=== PATIENT | female | born 1960 | race Caucasian/White ===

== ENCOUNTER 2020-01-12 15:32 | Outpatient (CLI) | payer BC, SELFPAY ==
--- NOTE | ~2020-01-12 | XR_ITS ---
XR wrist LT min 3V DATE: 01/12/2020 16:11 INDICATION: Fell 2 days ago. Left wrist injury, generalized pain TECHNIQUE: 4 views COMPARISON: None FINDINGS: No fracture or dislocation, periosteal reaction or bone destruction. No joint space narrow ing or erosions. IMPRESSION: No significant abnormality Reviewed, dictated and finalized at location B. MBLYMAN OR WOMAN IMPRESSION: No significant abnormality
== END 2020-01-12 15:33 | disposition home or self-care (01) ==
LOC: ANHIMG 15:41
PROVIDERS: PCP Family Medicine; Visit Provider Family Medicine
DX: M25.532 Pain in left wrist (principal)
CPT/HCPCS: 73110

== ENCOUNTER 2020-05-22 17:03 | Emergency (ER) | payer BC, SELFPAY ==
[2020-05-22 17:22] VITALS: BP 140/72; PULSE 72; RESP 15; TEMP 37.7; O2SAT 98
[2020-05-22 17:59] LABS: Basophils Percent Auto 0.4 % (0.2-1.2); Eosinophils Absolute Auto 0.1 K/mm3 (0-0.3); Eosinophils Percent Auto 0.6 % (0-4.4); Hematocrit 39.5 % (37.0-47.0); Hemoglobin 13.2 g/dL (12.0-15.0); Immature Granulocyte Absolute 0.03 K/mm3 (0.00-0.031); Immature Granulocyte Percent A 0.3 % (0-0.5); Lymphocytes Absolute Auto 1.13 K/mm3 (0.9-3.2); Lymphocytes Percent Auto 11.4 % (18.3-44.2); Mean Corpuscular HGB Conc 33.4 g/dl (32-36); Mean Corpuscular Hemoglobin 27.9 pg (26-34); Mean Corpuscular Volume 83.5 fl (80-100); Mean Platelet Volume 10.3 fl (7.4-10.4); Monocytes Absolute Auto 1.1 K/mm3 (0.1-0.6); Monocytes Percent Auto 11.3 % (2.6-8.5); Neutrophils Absolute Auto 7.5 K/mm3 (1.3-6.7); Platelet Count Result 230 k/mm3 (150-375); Red Blood Count 4.73 M/mm3 (4.2-5.4); Red Cell Distribution Width 13.1 % (11.5-14.5); White Blood Count 9.9 K/mm3 (4.5-10.0)
[2020-05-22 18:03] LABS: Add Urine Microscopic? YES; Appearance Urine Clear (Clear); Bacteria Urine Trace /hpf; Bilirubin Urine Negative (Negative); Blood Urine 2+ (Negative); Color Urine Yellow (Yellow); Glucose Urine UA Negative (Negative); Ketones Urine Negative (Negative); Leukocyte Esterase Ur Negative LEU/UL (Negative); Mucus Urine Rare /lpf; Nitrate Urine Negative (Negative); Protein Urine 1+ mg/dL (Negative); RBC Urine 0-2 /hpf (0-2); Specific Grav Ur 1.018 (1.001-1.035); Squamous Epithelial Cell Urine Rare /hpf (Few); Urobilinogen Urine Negative mg/dL (<2.0); WBC Urine 0-3 /hpf
[2020-05-22 18:16] LABS: Alanine Aminotransferase 17 U/L (4-35); Albumin Level 4.4 g/dL (3.5-5.1); Alkaline Phosphatase 93 U/L (38-126); Aspartate Amino Transferase 26 U/L (14-36); Bilirubin,Total 0.9 mg/dL (0.2-1.3); Blood Urea Nitrogen 16 mg/dL (7-17); Calcium 8.4 mg/dL (8.4-10.2); Carbon Dioxide 27 mmol/L (22-30); Chloride 93 mmol/L (98-107); Estimated CRCL calculation 61 ml/min; Estimated Glomerular Filt Rate > 60; Glucose 115 mg/dL (65-105); Potassium 4.1 mmol/L (3.4-5.0); Sodium 129 mmol/L (137-145)
--- NOTE | 2020-05-22 18:17 | ED.GENADULT ---
HPI - General Adult General Chief complaint: Unspecified Stated complaint: dehydration Time Seen by Provider: 05/22/20 17:54 History of Present Illness HPI narrative: Not feeling well for the past week. Started with nausea and epigastric pain. Then a few days later she develoiped fevers. She does report cough. No SOB. SHe was tested for COVID-19 yesterday which came back negative. Now she mostly feels week and dizzy. Related Data Allergies Allergy/AdvReac Type Severity Reaction Status Date / Time bacitracin Allergy Mild Verified 07/14/10 17:34 gramicidin D Allergy Mild Verified 07/14/10 17:34 polymyxin B Allergy Mild Verified 07/14/10 17:34 BACITRACIN ZINC Allergy Mild Uncoded 07/14/10 17:34 NEOMYCIN SULFATE Allergy Mild Uncoded 07/14/10 17:34 POLYMYXIN B SULFATE Allergy Mild Uncoded 07/14/10 17:34 Review of Systems Review of Systems: All systems reviewed & are unremarkable except as noted in HPI and below Constitutional: Constitutional: Reports fever(s) ENT: Denies sore throat Cardiovascular: Cardiovascular: Denies chest pain Respiratory: Respiratory: Reports cough and Denies dyspnea Gastrointestinal: Gastrointestinal: Reports abdominal pain, Denies constipation, Denies diarrhea, Reports nausea and Reports vomiting Genitourinary: Genitourinary: Denies hematuria and Denies dysuria [facility] Social History Social History Gender identity (if verbalized by the patient): Female Exam Const: General: healthy appearing, no acute distress and alert Orientation/consciousness: patient oriented x3 HENMT: Head: normal to inspection Mouth: Yes dry mucous membranes Neck: Neck: normal visual inspection and no lymphadenopathy Chest: Chest palpation & inspection: no tenderness Resp: Effort & Inspection: normal respiratory effort Auscultation: clear to auscultation bilaterally, no rales, no rhonchi and no wheezes Cardio: Jugular venous distension: no JVD Rate: regular rate Rhythm: regular rhythm Heart sounds: no murmurs GI: Inspection: non-distended GI Palp: Yes Soft to palpation and No Tenderness to palpation present (GI) Skin: General skin exam: normal color Neuro: General: patient oriented x3, moves all extremities and CN's II-XI intact bilaterally Speech: normal speech Extrem: General: no edema Psych: Appearance: well kempt Affect: normal affect Course Vital Signs Vital signs: Vital Signs Temperature 37.7 C H 05/22/20 17:22 Pulse Rate 72 05/22/20 17:22 Respiratory Rate 15 05/22/20 17:22 Blood Pressure 140/72 05/22/20 17:22 Pulse Oximetry 98 05/22/20 17:22 Temperature 37.7 C H 05/22/20 17:22 Pulse Rate 72 05/22/20 17:22 Respiratory Rate 15 05/22/20 17:22 Blood Pressure 140/72 05/22/20 17:22 Pulse Oximetry 98 05/22/20 17:22 Medical Decision Making MDM Narrative Medical decision making narrative: Labs indicate dehydration. She is feeling beter after fluids. tolerating PO. Medical Records Medical records reviewed: Yes I reviewed the patient's medical records. Vital Signs Vital Signs: Vital Signs Temperature 37.7 C H 05/22/20 17:22 Pulse Rate 72 05/22/20 17:22 Respiratory Rate 15 05/22/20 17:22 Blood Pressure 140/72 05/22/20 17:22 Pulse Oximetry 98 05/22/20 17:22 Temperature 37.7 C H 05/22/20 17:22 Pulse Rate 72 05/22/20 17:22 Respiratory Rate 15 05/22/20 17:22 Blood Pressure 140/72 05/22/20 17:22 Pulse Oximetry 98 05/22/20 17:22 Lab Data Lab results reviewed: Yes I reviewed the patient's lab results. Result diagrams: 05/22/20 17:52 05/22/20 17:52 Labs: Lab Results 05/22/20 05/22/20 05/22/20 Range/Units 17:52 17:52 17:52 WBC 9.9 (4.5-10.0) K/mm3 RBC 4.73 (4.2-5.4) M/mm3 Hgb 13.2 (12.0-15.0) g/dL Hct 39.5 (37.0-47.0) % MCV 83.5 (80-100) fl MCH 27.9 (26-34) pg MCHC 33.4 (32-36) g/dl RDW 1
[2020-05-22] MEDS: SODIUM CHLORIDE 0.9% IV 1,000 ML 999 ML IV CONT ×2 (18:21→19:37)
[2020-05-22] MEDS: ONDANSETRON INJ 4 MG/2 ML VIAL IV PUSH (18:22)
[2020-05-22] MEDS: METOCLOPRAMIDE HCL INJ 10 MG/2 ML VIAL IV PUSH (19:37)
[2020-05-22] MEDS: KETOROLAC 30 MG/ML VIAL (*BKC) IV PUSH (19:37)
== END 2020-05-22 20:40 | disposition home or self-care (01) ==
PROVIDERS: Emergency Provider Emergency Medicine; PCP Family Medicine
DX: R11.2 Nausea with vomiting, unspecified (principal)
CPT/HCPCS: 36415; 80053; 81001; 85025; 96361; 96374; 96375; 99284; J1885; J2405; J2765; J7030

== ENCOUNTER 2020-12-15 15:55 | Outpatient (CLI) | payer BC, SELFPAY ==
--- NOTE | ~2020-12-15 | MM_ITS ---
EXAMINATION: MM screening nida BI w pat HISTORY: Screening mammogram TECHNIQUE: Craniocaudal and mediolateral oblique 3-D tomosynthesis images were obtained and synthetic 2-D images were generated. CAD analysis was submitted and interpreted. COMPARISON: 03/22/2018, 12/04/2016, 03/26/2013 bilateral digital screening mammogram examinations BREAST PARENCHYMAL COMPOSITION: There are scattered areas of fibroglandular density. FINDINGS: There is no evidence of suspicious mass, calcification, or architectural distortion to sugg est malignancy in either breast. There has been no suspicious interval change. IMPRESSION: 1. No mammographic evidence of malignancy. 2. Recommend routine screening mammography in one year. BI-RADS Category 1: Negative Reviewed, dictated and finalized at location A. IGURATION MANAGEMENT ADMINISTRATOR
== END 2020-12-15 15:56 | disposition home or self-care (01) ==
LOC: ANHIMG 15:57
PROVIDERS: Family Provider Family Medicine; PCP Family Medicine; Visit Provider Physician Assistant
DX: Z12.31 Encounter for screening mammogram for malignant neoplasm of breast (principal)
CPT/HCPCS: 77063; 77067

== ENCOUNTER 2021-03-29 16:43 | Emergency (ER) | payer BC, SELFPAY ==
[2021-03-29] VITALS (17 sets, daily range): BP systolic 126–145; BP diastolic 61–78; PULSE 80–107; RESP 9–22; TEMP 36.7; O2SAT 97–99
--- NOTE | ~2021-03-29 | CT_ITS ---
EXAMINATION: CTA chest PE protocol DATE: 03/29/2021 19:11 INDICATION: Lung mass. Shoulder blade pain. TECHNIQUE: Computed tomography angiography (CTA) of the chest was performed with 100 mL Omnipaque-350 intravenous contrast timed to evaluate the pulmonary arteries. Coronal maximum intensity projection 3D-reconstructions were created by the technologist. Automated exposure control and iterative reconst ruction technique were employed. The dose-length product was 320.37 mGy-cm. COMPARISON: Chest 2 views 03/29/2021 FINDINGS: A calcified right lung nodule and calcified right hilar lymph nodes are consistent with old granulomatous disease. There are airspace opacities and groundglass opacities with air bronchograms in anterior segment left upper lobe. There are peripheral airspace and groundglass opacities in super ior segment left lower lobe. These findings are consistent with pneumonia. There is mild atelectasis bilaterally. There are several scattered nodules in the lungs measuring up to 5 mm, likely benign. No pleural effusion. The heart size is normal. No pericardial effusion. There is no pulmonary embolus. There is severe mid thoracic spondylosis. IMPRESSION: 1. Pneumonia involving anterior segment left upper lobe and superior segment left lower lobe correlat ing with the chest radiograph abnormality. 2. No pulmonary embolus. Reviewed, dictated and finalized at location A. IMPRESSION: 1. Pneumonia involving anterior segment left upper lobe and superior segment le ft lower lobe correlating with the chest radiograph abnormality. 2. No pulmonary embolus.
--- NOTE | ~2021-03-29 | XR_ITS ---
EXAMINATION: XR chest 2V DATE: 03/29/2021 17:41 INDICATION: Chest pain. TECHNIQUE: Frontal and lateral views of the chest were obtained. COMPARISON: None. FINDINGS: There is a mass in left midlung zone. No pleural effusion or pneumothorax. The heart size i s normal. IMPRESSION: 1. Mass in left midlung zone suspicious for primary bronchogenic carcinoma. Chest CT is recommended. I called this result to Dr. Doan. Reviewed, dictated and finalized at location A. IMPRESSION: 1. Mass in left midlung zone suspicious for primary bronchogenic carcinoma. Landy st CT is recommended. I called this result to Dr. Doan.
--- NOTE | 2021-03-29 16:53 | ECG_ITS ---
Measurements Intervals [place] Rate: 93 P: 63 ME: 145 QRS: 25 QRSD: 86 T: 19 QT: 339 QTc: 424 Interpretive Statements SINUS RHYTHM BORDERLINE T WAVE ABNORMALITY- ANTERIOR LEADS BASELINE ARTIFACT- I, II, III, AVR, AVF, V2-V6 BORDERLINE ECG Electronically Signed On 03-29-2021 18:43:45 CDT by Amos Alvarez D.O.
--- NOTE | 2021-03-29 17:19 | ED.ARRPALP ---
HPI - Arrhythmia/Palpitations General Chief Complaint: Arrhythmia/Palpitations Stated Complaint: lightheaded, back pain, sob Time Seen by Provider: 03/29/21 17:08 Source: patient Mode of arrival: ambulatory Limitations: no limitations History of Present Illness HPI narrative: This is a 60 year old female who presents for evaluation of lightheadedness and back pain. She states she has been intermittently lightheaded for 1 week. She also reports some nights she wakes up with her heart racing. On Sunday, she noticed pain to her left shoulder blade and it has been constant. Yesterday her pain moved across her entire upper back. Her pain is better after taking aspirin. She does not think her pain is exertion. She thinks she may have intermittent chest pain today but it is not exertional either. She denies nausea, vomiting, fever, chills. she does reports mild cough and fatigue. Denies cardiac disease or lung disease. Related Data Home Medications Medication Instructions Recorded Confirmed ascorbic acid (vitamin C) [Vitamin 1 g PO DAILY 03/29/21 03/29/21 C] cetirizine [Zyrtec] 10 mg PO DAILY 03/29/21 03/29/21 Allergies Allergy/AdvReac Type Severity Reaction Status Date / Time bacitracin Allergy Mild Unknown Verified 03/29/21 17:04 gramicidin D Allergy Mild Unknown Verified 03/29/21 17:04 polymyxin B Allergy Mild Unknown Verified 03/29/21 17:04 BACITRACIN ZINC Allergy Mild Unknown Uncoded 03/29/21 17:04 NEOMYCIN SULFATE Allergy Mild Unknown Uncoded 03/29/21 17:04 POLYMYXIN B SULFATE Allergy Mild Unknown Uncoded 03/29/21 17:04 Review of Systems Review of Systems: All systems reviewed & are unremarkable except as noted in HPI and below PMFSH Past Medical History Medical History (Updated 03/29/21 @ 20:57 by Eden Ocampo MD) Lichen sclerosus of vulva Social History Social History (Updated 03/29/21 @ 17:27 by Eden Ocampo MD) Smoking status: Former smoker Gender identity (if verbalized by the patient): Female Exam Const: General: no acute distress and alert Orientation/consciousness: patient oriented x3 Eyes: EOM: EOMs intact bilaterally Chest: Chest palpation & inspection: normal inspection of the chest Resp: Effort & Inspection: normal respiratory effort and no retractions Auscultation: clear to auscultation bilaterally Cardio: Rate: regular rate Rhythm: regular rhythm Heart sounds: no murmurs GI: GI Palp: Yes Soft to palpation, No Tenderness to palpation present (GI) and No Guarding due to palpation present (GI) Auscultation: normal bowel sounds Back/Spine/Pelvis: Back: no CVA tenderness Skin: General skin exam: normal color Neuro: General: patient oriented x3, moves all extremities and CN's II-XI intact bilaterally Psych: Mental Status: mental status grossly normal Affect: normal affect Course Reevaluation(s) Reevaluation #1: I Discussed with patient that she has been found to have pneumonia. She was given antibiotics here. She is not hypoxic and vitals are stable. She denies any questions or concerns. Date: 03/29/21 Time: 20:54 Vital Signs Vital signs: Vital Signs Temperature 98.1 F 03/29/21 16:55 Pulse Rate 92 03/29/21 16:55 Respiratory Rate 18 03/29/21 16:55 Blood Pressure 143/76 H 03/29/21 16:55 Pulse Oximetry 99 03/29/21 16:55 Temperature 98.1 F 03/29/21 16:55 Pulse Rate 99 03/29/21 18:47 Respiratory Rate 18 03/29/21 18:47 Blood Pressure 135/78 03/29/21 18:47 Pulse Oximetry 99 03/29/21 18:47 MDM - Arrhythmia/Palpitations Lab Data Attestation: I reviewed the patient's lab results. Result diagrams: 03/29/21 17:35 03/29/21 17:35 Labs: Lab Results 03/29/21 03/29/21 03/29/21 Range/Units 17:35 17:35 17:35 WBC 9.4 (4.5-10.0) K/mm3 RBC 4.64 (4.2-5.4) M/mm3 Hgb 12.8 (12.0-15.0) g/dL Hct 39.4 (37.0-47.0) % MCV 84.9 (80-100) fl MCH 27.6 (26-34)
[2021-03-29] MEDS: ASPIRIN 81 MG CHEWABLE TABLET 162 MG PO (17:28)
[2021-03-29 17:57] LABS: Basophils Absolute Auto 0.1 K/mm3 (0.0-0.1); Basophils Percent Auto 0.6 % (0.2-1.2); Eosinophils Absolute Auto 0.3 K/mm3 (0-0.3); Eosinophils Percent Auto 3.3 % (0-4.4); Hematocrit 39.4 % (37.0-47.0); Hemoglobin 12.8 g/dL (12.0-15.0); Immature Granulocyte Absolute 0.03 K/mm3 (0.00-0.031); Immature Granulocyte Percent A 0.3 % (0-0.5); Lymphocytes Absolute Auto 1.39 K/mm3 (0.9-3.2); Lymphocytes Percent Auto 14.7 % (18.3-44.2); Mean Corpuscular HGB Conc 32.5 g/dl (32-36); Mean Corpuscular Hemoglobin 27.6 pg (26-34); Mean Corpuscular Volume 84.9 fl (80-100); Mean Platelet Volume 10.8 fl (7.4-10.4); Monocytes Absolute Auto 0.8 K/mm3 (0.1-0.6); Monocytes Percent Auto 8.8 % (2.6-8.5); Neutrophils Absolute Auto 6.8 K/mm3 (1.3-6.7); Neutrophils Percent Auto 72.3 % (45.5-73.1); Platelet Count Result 245 k/mm3 (150-375); Red Blood Count 4.64 M/mm3 (4.2-5.4); Red Cell Distribution Width 13.1 % (11.5-14.5); White Blood Count 9.4 K/mm3 (4.5-10.0)
[2021-03-29 18:08] LABS: Anion Gap 5 mmol/L (8-16); Blood Urea Nitrogen 10 mg/dL (7-17); Calcium 9.3 mg/dL (8.4-10.2); Carbon Dioxide 30 mmol/L (22-30); Chloride 100 mmol/L (98-107); Estimated CRCL calculation 67 ml/min; Estimated Glomerular Filt Rate > 60; Glucose 108 mg/dL (65-105); Potassium 3.9 mmol/L (3.4-5.0); Sodium 135 mmol/L (137-145)
[2021-03-29 18:11] LABS: Magnesium 2.1 mg/dL (1.6-2.3)
[2021-03-29 18:20] LABS: Troponin I < 0.012 ng/mL (0.000-0.034)
[2021-03-29 18:32] LABS: D Dimer 0.36 ug/mL (<0.48)
[2021-03-29] MEDS: AZITHROMYCIN 250 MG TABLET 500 MG PO (19:57)
[2021-03-29] MEDS: LACTATED RINGERS 1,000 ML 999 ML IV CONT (19:57)
[2021-03-29 20:59] LABS: Troponin I < 0.012 ng/mL (0.000-0.034)
== END 2021-03-29 21:10 | disposition home or self-care (01) ==
PROVIDERS: Emergency Medicine; Emergency Provider General Practice; PCP Family Medicine
DX: J18.9 Pneumonia, unspecified organism (principal)
CPT/HCPCS: 36415; 71046; 71275; 80048; 83735; 84484; 85025; 85380; 93005; 96361; 96365; 99284; A9270; J0696; J7120; Q9967

== ENCOUNTER 2021-04-18 16:41 | Outpatient (CLI) | payer BC, SELFPAY ==
--- NOTE | ~2021-04-18 | XR_ITS ---
EXAMINATION: XR chest 2V 04/18/2021 16:58 INDICATION: Follow-up pneumonia. PROCEDURE: PA and lateral views of the chest COMPARISON: 03/29/2021 FINDINGS: The lungs are clear. The cardiomediastinal silhouette is within normal limits. There are no pleural effusions. There is no pneumothorax suspected. There are calcified granulomas of the rig ht lower lung. IMPRESSION: 1: NO ACUTE CARDIOPULMONARY DISEASE. Reviewed, dictated and finalized at location A.
== END 2021-04-18 16:42 | disposition home or self-care (01) ==
LOC: ANHIMG 16:46
PROVIDERS: PCP Family Medicine; Visit Provider Family Medicine
DX: J18.9 Pneumonia, unspecified organism (principal)
CPT/HCPCS: 71046

== ENCOUNTER → 2021-11-09 09:57 | Outpatient (CLI) | payer BC, SELFPAY ==
[2021-11-09 18:29] LABS: SARS-CoV-2 RNA PCR Negative
== END ==
PROVIDERS: PCP Family Medicine; Visit Provider Physician Assistant
DX: Z20.822 Contact with and (suspected) exposure to COVID-19 (principal)
CPT/HCPCS: C9803; U0003; U0005

== ENCOUNTER 2022-01-27 10:13 | Emergency (ER) | payer BC, SELFPAY ==
[2022-01-27] VITALS (7 sets, daily range): BP systolic 120–170; BP diastolic 53–89; PULSE 56–96; RESP 14–18; TEMP 36.6–36.8; O2SAT 14–100
--- NOTE | ~2022-01-27 | XR_ITS ---
EXAMINATION: XR foot LT min 3V EXAM DATE: 01/27/2022 11:47 INDICATION: Pain Across Midshaft Metatarsals. TECHNIQUE: Left foot dorsoplantar, lateral and oblique projections obtained and reviewed. There is n o prior study for comparison. FINDINGS: Left metatarsal bones unremarkable. Tiny posterior and inferior calcaneal spurs. There a re no acute fractures or dislocations identified. There is no subcutaneous gas. The soft tissue is unremarkable. There are no radiopaque foreign bodies. IMPRESSION: Left foot exam without acute osseous findings. Reviewed, dictated and finalized at location B. ROL SYSTEMS ENG
--- NOTE | ~2022-01-27 | CT_ITS ---
EXAMINATION: CT brain wo con DATE: 01/27/2022 11:44 INDICATION: Headache. TECHNIQUE: Computed tomography (CT) of the head was performed without intravenous contrast. The mA wa s adjusted according to patient size. Iterative reconstruction technique was employed. The dose-lengt h product was 605.33 mGy-cm. COMPARISON: None FINDINGS: There is no intracranial hemorrhage, acute infarction, or abnormal intracranial mass lesion . The ventricles are normal in size. The orbits are normal. There is mucosal thickening and dependent fluid in the paranasal sinuses. The mastoid air cells are normal. IMPRESSION: 1. Normal brain. Reviewed, dictated and finalized at location A. MOTIVE REPAIRER DIESEL IMPRESSION: 1. Normal brain.
--- NOTE | ~2022-01-27 | XR_ITS ---
EXAMINATION: XR chest 2V EXAM DATE: 01/27/2022 11:47 INDICATION: High Blood Pressure, Dizziness . TECHNIQUE: Frontal and lateral projections of the chest obtained and reviewed. Comparison is made to prior examination from 04/18/2021. FINDINGS: Several right lung calcifications. The lungs are otherwise clear. There are no pleural eff usions. The cardiomediastinal silhouette is within normal limits. There is no pneumothorax suspecte d. The bones and soft tissues are unremarkable. IMPRESSION: No acute cardiopulmonary findings. Reviewed, dictated and finalized at location B. ICE TEAM LEADER
--- NOTE | 2022-01-27 11:13 | ECG_ITS ---
Measurements Intervals [place] Rate: 61 P: 67 WV: 141 QRS: 55 QRSD: 87 T: 58 QT: 435 QTc: 441 Interpretive Statements SINUS RHYTHM COMPARED TO ECG 03/29/2021 16:51:50 NO SIGNIFICANT CHANGES Electronically Signed On 01-27-2022 15:56:31 CDL INSTRUCTOR by Harshal Kerr M.D.
--- NOTE | 2022-01-27 11:32 | ED.RECABL ---
HPI - Recheck/Abnormal Lab/Rx General Chief Complaint: Recheck/Abnormal Lab/Rx <Kassy Lucero PA-C - Last Filed: 01/27/22 14:51> Stated Complaint: High Blood Pressure <Kassy Lucero PA-C - Last Filed: 01/27/22 14:51> Time Seen by Provider: 01/27/22 11:13 <Kassy Lucero PA-C - Last Filed: 01/27/22 14:51> Source: patient <Kassy Lucero PA-C - Last Filed: 01/27/22 14:51> Mode of arrival: ambulatory <Kassy Lucero PA-C - Last Filed: 01/27/22 14:51> Limitations: no limitations <Kassy Lucero PA-C - Last Filed: 01/27/22 14:51> History of Present Illness HPI narrative: This is a 61-year-old female that presents to the emergency department for elevated blood pressure. Reports she was diagnosed with hypertension and started on hydrochlorothiazide. She has noticed that her blood pressures are elevated especially in the morning. Reports this morning she started to feel sweaty and had some mild chest discomfort. She also noted a headache today. She has intermittently been lightheaded. Her left foot was achy today. Denies fever, current chest pain or shortness of breath, vision changes, vomiting, numbness or weakness. <Kassy Lucero PA-C - Last Filed: 01/27/22 14:51> Related Data Home Medications: Home Medications Medication Instructions Recorded Confirmed ascorbic acid (vitamin C) [Vitamin 1 g PO DAILY 03/29/21 03/29/21 C] cetirizine [Zyrtec] 10 mg PO DAILY 03/29/21 03/29/21 <Kassy Lucero PA-C - Last Filed: 01/27/22 14:51> Allergies/Adverse Reactions: Allergies Allergy/AdvReac Type Severity Reaction Status Date / Time bacitracin Allergy Mild Unknown Verified 01/27/22 10:23 gramicidin D Allergy Mild Unknown Verified 01/27/22 10:23 polymyxin B Allergy Mild Unknown Verified 01/27/22 10:23 BACITRACIN ZINC Allergy Mild Unknown Uncoded 01/27/22 10:23 NEOMYCIN SULFATE Allergy Mild Unknown Uncoded 01/27/22 10:23 POLYMYXIN B SULFATE Allergy Mild Unknown Uncoded 01/27/22 10:23 <Kassy Lucero PA-C - Last Filed: 01/27/22 14:51> Review of Systems Review of Systems: CONSTITUTIONAL: Denies fever EYES: Denies visual changes CARDIOVASCULAR: Denies chest pain, or edema. RESPIRATORY: Denies dyspnea. GASTROINTESTINAL: Denies vomiting MUSCULOSKELETAL: Reports joint pain, and myalgia. NEUROLOGIC: Reports headache. Denies numbness, or weakness. <Kassy Lucero PA-C - Last Filed: 01/27/22 14:51> All systems reviewed & are unremarkable except as noted in HPI and below <Kassy Lucero PA-C - Last Filed: 01/27/22 14:51> [facility] Past Medical History Medical History: Medical History (Updated 01/27/22 @ 14:45 by Kassy Lucero PA-C) History of hypertension Lichen sclerosus of vulva <Kassy Lucero PA-C - Last Filed: 01/27/22 14:51> Social History Social History: Social History (Updated 03/29/21 @ 17:27 by Eden Ocampo MD) Smoking status: Former smoker Gender identity (if verbalized by the patient): Female <Kassy Lucero PA-C - Last Filed: 01/27/22 14:51> Exam Narrative: GENERAL: Well-appearing, well-nourished, and in no acute distress. HEAD: Normocephalic, atraumatic. EYES: PERRLA and EOMI. ENT: Nares clear, no rhinorrhea or epistaxis. Mucous membranes moist. Oropharynx without tonsillar hypertrophy exudate or other lesions. Bilateral TMs pearly berman non-bulging NECK: Supple. No adenopathy or masses. CHEST: Clear to auscultation. No respiratory distress. No wheezes rales or rhonchi HEART: Regular rate and rhythm. No murmur heard. Normal peripheral pulses. ABDOMEN: Soft, nontender, nondistended, normal active bowel sounds. EXTREMITIES: Normal range of motion. No edema. Strength equal in bilateral upper and lower extremities (5/5) SKIN: Warm, dry, no rash. NEURO: No focal deficits. Alert and oriented x3. Cranial nerves II through XII grossly intact PSYCH: Normal mood and affect <Kassy Lucero PA-C - Last Filed:
[2022-01-27 12:03] LABS: Basophils Absolute Auto 0.1 K/mm3 (0.0-0.1); Basophils Percent Auto 0.8 % (0.2-1.2); Eosinophils Absolute Auto 0.6 K/mm3 (0-0.3); Eosinophils Percent Auto 6.3 % (0-4.4); Hematocrit 41.7 % (37.0-47.0); Hemoglobin 13.6 g/dL (12.0-15.0); Immature Granulocyte Absolute 0.02 K/mm3 (0.00-0.031); Immature Granulocyte Percent A 0.2 % (0-0.5); Lymphocytes Absolute Auto 1.82 K/mm3 (0.9-3.2); Lymphocytes Percent Auto 19.5 % (18.3-44.2); Mean Corpuscular HGB Conc 32.6 g/dl (32-36); Mean Corpuscular Hemoglobin 28.1 pg (26-34); Mean Corpuscular Volume 86.2 fl (80-100); Mean Platelet Volume 10.9 fl (7.4-10.4); Monocytes Absolute Auto 0.6 K/mm3 (0.1-0.6); Monocytes Percent Auto 6.6 % (2.6-8.5); Neutrophils Absolute Auto 6.2 K/mm3 (1.3-6.7); Neutrophils Percent Auto 66.6 % (45.5-73.1); Platelet Count Result 276 k/mm3 (150-375); Red Blood Count 4.84 M/mm3 (4.2-5.4); Red Cell Distribution Width 13.2 % (11.5-14.5); White Blood Count 9.3 K/mm3 (4.5-10.0)
[2022-01-27 12:12] LABS: Alanine Aminotransferase 17 U/L (4-35); Albumin Level 4.5 g/dL (3.5-5.1); Alkaline Phosphatase 106 U/L (38-126); Anion Gap 7 mmol/L (8-16); Aspartate Amino Transferase 26 U/L (14-36); Bilirubin,Total 0.8 mg/dL (0.2-1.3); Blood Urea Nitrogen 14 mg/dL (7-17); Calcium 9.1 mg/dL (8.4-10.2); Carbon Dioxide 33 mmol/L (22-30); Chloride 96 mmol/L (98-107); Estimated CRCL calculation 75 ml/min; Estimated Glomerular Filt Rate > 60; Glucose 115 mg/dL (65-110); Potassium 3.8 mmol/L (3.4-5.0); Sodium 136 mmol/L (137-145)
[2022-01-27 12:15] LABS: Add Urine Microscopic? NO; Appearance Urine Clear (Clear); Bilirubin Urine Negative (Negative); Blood Urine Negative (Negative); Color Urine Straw (Yellow); Glucose Urine UA Negative (Negative); Ketones Urine Negative (Negative); Leukocyte Esterase Ur Negative LEU/UL (Negative); Nitrate Urine Negative (Negative); Protein Urine Negative (Negative); Specific Grav Ur 1.006 (1.001-1.035); Urobilinogen Urine Negative mg/dL (<2.0)
[2022-01-27 13:00] LABS: Thyroid Stimulating Hormone Reflex 0.957 uIU/mL (0.465-4.68)
[2022-01-27 13:02] LABS: Prothrombin Time 12.5 Seconds (11.1-14.7)
[2022-01-27 13:03] LABS: Partial Thromboplastin Time 29.7 SECONDS (22.3-36.8)
[2022-01-27 13:18] LABS: Troponin I < 0.012 ng/mL (0.000-0.034)
== END 2022-01-27 14:49 | disposition home or self-care (01) ==
PROVIDERS: Physician Assistant; Emergency Provider General Practice; PCP Family Medicine
DX: I10 Essential (primary) hypertension (principal); Z87.891 Personal history of nicotine dependence; M79.672 Pain in left foot
CPT/HCPCS: 36415; 70450; 71046; 73630; 80053; 81003; 84443; 84484; 85025; 85610; 85730; 93005; 96374; 99284; J0131

== ENCOUNTER 2022-03-14 00:07 | Day surgery (SDC) | payer BC, SELFPAY ==
[2022-02-24 15:25] VITALS: BMI 28.6
[2022-03-14 06:12] VITALS: BP 145/78; PULSE 85; RESP 18; TEMP 36.8; O2SAT 99; BMI 27.3
[2022-03-14] MEDS: LACTATED RINGERS 1,000 ML 150 ML IV CONT (06:31)
--- NOTE | 2022-03-14 06:42 | WPDANESEPPF ---
Anes - Initial Pre Proc Eval Procedure: Operation Date: 03/14/22 07:30 Proposed Procedures p Screening Colonoscopy - Reji Fma MD Date/Time: 03/14/22 06:42 Surgeon: Reji Fam MD Pre Op Diagnosis: neoplasm screening Patient Data Age: 61 Gender: F Height: 1.65 m Weight: 74.6 kg Last Vital Signs Temp 36.8 C 03/14/22 06:12 Pulse 85 03/14/22 06:12 Resp 18 03/14/22 06:12 BP 145/78 H 03/14/22 06:12 Pulse Ox 99 03/14/22 06:12 Allergies Allergy/AdvReac Type Severity Reaction Status Date / Time bacitracin Allergy Mild Unknown Verified 03/14/22 06:22 gramicidin D Allergy Mild Unknown Verified 03/14/22 06:22 polymyxin B Allergy Mild Unknown Verified 03/14/22 06:22 BACITRACIN ZINC Allergy Mild Unknown Uncoded 03/14/22 06:22 NEOMYCIN SULFATE Allergy Mild Unknown Uncoded 03/14/22 06:22 POLYMYXIN B SULFATE Allergy Mild Unknown Uncoded 03/14/22 06:22 Home Medications Medication Instructions Recorded Confirmed Type albuterol sulfate 2 puff INHALATION QID PRN #6.7 g 03/29/21 03/14/22 Rx ascorbic acid (vitamin C) [Vitamin 1 g PO DAILY 03/29/21 03/14/22 History C] cetirizine [Zyrtec] 10 mg PO DAILY 03/29/21 03/14/22 History ibuprofen 600 mg PO Q6H PRN #14 tablet 03/29/21 03/14/22 Rx hydrochlorothiazide 25 mg PO DAILY 02/24/22 03/14/22 History Patient hx anesthesia problems: none Family hx anesthesia problems: none Results Review: All pre-operative results and documents have been reviewed as part of the pre-operative evaluation. PENDING SALE TO [facility] Past Medical History Medical History (Updated 01/28/22 @ 00:00 by Adam Chase) History of hypertension Lichen sclerosus of vulva Social History Social History (Updated 03/29/21 @ 17:27 by Eden Ocampo MD) Smoking status: Never smoker Alcohol intake: never Substance use: never Substance use type: does not use Living arrangements: with family Gender identity (if verbalized by the patient): Female Spiritual care concerns: No Anes - Eval Final PreProcedure Day of Procedure 03/14/22 06:42 Patient weight: overweight Heart: regular rate and rhythm Lungs: clear to auscultation and normal air movement Airway: Mallampati scale class II Neurological: alert and oriented Last oral intake: >/= 8 hours ASA classification: II Emergent: no Anesthetic plan: proceed Anesthesia type and monitoring: general GIVS and standard monitoring Results Review: All pre-operative results and documents have been reviewed as part of the pre-operative evaluation. Informed Consent: The patient's anesthetic plan and its attendant risks and benefits were discussed with the patient/family/POA. Questions were solicited and answers provided to the satisfaction of the patient/family/POA.
--- NOTE | 2022-03-14 07:23 | PM.HPGS ---
History of Present Illness History of Present Illness Consent: Risks, benefits, and alternatives have been discussed and questions answered. Patient agrees to proceed with procedure. Chief complaint: neoplasm screening Narrative: Heidy Garcia is a 61 year old female with 2 previous colonoscopies, first one had a polyp and did not have any last time which was about 7 years ago. Review of Systems Constitutional: Constitutional: Denies headache(s) and Denies weakness Eyes: Eyes: Denies blurry vision ENT: Reports Normal hearing present, Denies headache(s) and Denies neck pain Cardiovascular: Cardiovascular: Denies chest pain and Denies dyspnea Respiratory: Respiratory: Denies dyspnea Gastrointestinal: Gastrointestinal: Reports no additional gastrointestinal complaints Genitourinary: Genitourinary: Denies dysuria Musculoskeletal: Musculoskeletal: Denies neck pain Integumentary/Breasts: Skin/Breast: Denies dry skin Neurologic: Reports Normal hearing present, Denies headache(s) and Denies weakness Psychiatric: Psychiatric: Denies anxiety Endocrine: Endocrine: Denies change in body appearance Hematologic/Lymphatic: Hematologic/Lymphatic: Denies easy bleeding Allergic/Immunologic: Allergic/Immunologic: Denies urticaria PMFSH Past Medical History Medical History (Updated 03/14/22 @ 07:24 by Reji Fam MD) Colon polyp History of hypertension Lichen sclerosus of vulva Social History Social History (Updated 03/29/21 @ 17:27 by Eden Ocampo MD) Smoking status: Never smoker Alcohol intake: never Substance use: never Substance use type: does not use Living arrangements: with family Gender identity (if verbalized by the patient): Female Spiritual care concerns: No Meds Home Medications and Allergies Home Medications Medication Instructions Recorded Confirmed Type albuterol sulfate 2 puff INHALATION QID PRN #6.7 g 03/29/21 03/14/22 Rx ascorbic acid (vitamin C) [Vitamin 1 g PO DAILY 03/29/21 03/14/22 History C] cetirizine [Zyrtec] 10 mg PO DAILY 03/29/21 03/14/22 History ibuprofen 600 mg PO Q6H PRN #14 tablet 03/29/21 03/14/22 Rx hydrochlorothiazide 25 mg PO DAILY 02/24/22 03/14/22 History Allergies Allergy/AdvReac Type Severity Reaction Status Date / Time bacitracin Allergy Mild Unknown Verified 03/14/22 06:22 gramicidin D Allergy Mild Unknown Verified 03/14/22 06:22 polymyxin B Allergy Mild Unknown Verified 03/14/22 06:22 BACITRACIN ZINC Allergy Mild Unknown Uncoded 03/14/22 06:22 NEOMYCIN SULFATE Allergy Mild Unknown Uncoded 03/14/22 06:22 POLYMYXIN B SULFATE Allergy Mild Unknown Uncoded 03/14/22 06:22 Vital Signs Vital Signs - 24 hr 03/14/22 06:12 Temperature 98.2 F Pulse Rate 85 Respiratory Rate 18 Blood Pressure 145/78 H Pulse Oximetry 99 Exam Const: General: comfortable and no acute distress HENMT: General nose exam: Normal nares present Eyes: General: appearance normal, both eyes and all related structures Neck: Neck: no JVD Resp: Auscultation: clear to auscultation bilaterally Cardio: Rate: regular rate Rhythm: regular rhythm GI: Inspection: non-distended GI Palp: Yes Soft to palpation Skin: General skin exam: normal color Neuro: General: gait normal Speech: normal speech Extrem: General: normal to inspection Psych: Mental Status: mental status grossly normal Assessment and Plan Assessment and plan (1) Colon polyp: Code(s): K63.5 - Polyp of colon Status: Acute Assessment and Plan: colonoscopy
[2022-03-14 07:43] VITALS: BP 126/72; PULSE 75; RESP 14; O2SAT 99
[2022-03-14 07:53] VITALS: BP 146/77; PULSE 60; RESP 16; O2SAT 100
[2022-03-14 08:03] VITALS: BP 141/85; PULSE 64; RESP 20; O2SAT 99
== END 2022-03-14 08:24 | disposition home or self-care (01) ==
PROVIDERS: PCP Family Medicine; Visit Provider Internal Medicine Gastroenterology
PROC: 0DJD8ZZ Inspection of Lower Intestinal Tract, Via Natural or Artificial Opening Endoscopic (ICD-10-PCS; CPT 45378; principal; 2022-03-14 07:30)
DX: Z12.11 Encounter for screening for malignant neoplasm of colon (principal); D12.2 Benign neoplasm of ascending colon
CPT/HCPCS: 45385; 88305; J2704; J7120

== ENCOUNTER 2022-03-29 09:06 | Outpatient (CLI) | payer BC, SELFPAY ==
--- NOTE | ~2022-03-29 | MM_ITS ---
EXAMINATION: MM screening nida BI w pat HISTORY: Screening mammogram TECHNIQUE: Craniocaudal and mediolateral oblique 3-D tomosynthesis images were obtained and synthetic 2-D images were generated. CAD analysis was submitted and interpreted. COMPARISON: 12/15/2020, 03/22/2018, 12/14/2016 bilateral screening mammogram examinations BREAST PARENCHYMAL COMPOSITION: There are scattered areas of fibroglandular density. FINDINGS: There is no evidence of suspicious mass, calcification, or architectural distortion to sugg est malignancy in either breast. There has been no suspicious interval change. IMPRESSION: 1. No mammographic evidence of malignancy. 2. Recommend routine screening mammography in one year. BI-RADS Category 1: Negative Reviewed, dictated and finalized at location A.
== END 2022-03-29 09:07 | disposition home or self-care (01) ==
LOC: ANHIMG 09:08
PROVIDERS: PCP Family Medicine; Visit Provider Advanced Practice Midwife
DX: Z12.31 Encounter for screening mammogram for malignant neoplasm of breast (principal)
CPT/HCPCS: 77063; 77067

== ENCOUNTER 2022-05-11 10:03 | Outpatient (CLI) | payer BC, SELFPAY ==
--- NOTE | ~2022-05-11 | DEXA_ITS ---
Bone Density Report Name: HIRAM CLIFFORD Age: 61 Sex: Female Ethnicity: White Date of : 1960 Indication: postmenopausal; screening for osteoporosis; Referring Provider: OWEN MCKENZIE Study: Bone densitometry was performed. Exam Date: May 11, 2022 Accession number: [id number] Bone Density: Region BMD T-score Z-score Classification AP Spine(L1-L4) 0.695 -3.2 -1.7 Osteoporosis Femoral Neck (Left) 0.607 -2.2 -0.8 Osteopenia Total Hip (Left) 0.701 -2.0 -1.0 Osteopenia Femoral Neck (Right) 0.590 -2.3 -1.0 Osteopenia Total Hip (Right) 0.714 -1.9 -0.8 Osteopenia Total Hip Mean 0.708 -2.0 -0.9 Osteopenia World Health Organization criteria for BMD impression classify patients as: Normal (T-score at or above -1.0), Osteopenia (T-score between -1.0 and -2.5), or Osteoporosis (T-score at or below -2.5). 10-year Fracture Risk: FRAX not reported because: Some T-score for Spine Total or Hip Total or Femoral Neck at or below -2.5 Clinical Information Provided by Patient: Has used the following medications: Vitamin D, Calcium Patient maximum height was 65 Menopause Age: 50 No regular weight bearing exercise Drinks caffeinated beverages Onset of menses at age 16 Number of children 3 Impression: The patient has osteoporosis, based on the Total Spine T-score. Discussion: INCREASED RISK OF FRACTURE. BONE DENSITY IS UNDESIRABLY LOW AT ONE OR MORE SKELETAL SITES, CONSISTENT WITH POSTMENOPAUSAL OSTEOPOROSIS. This patient's lowest T-score meets the World Health Organization's (WHO) criteria for osteoporosis at one or more sites (T-score -2.5 or below). In untreated patients, the risk of osteoporotic fracture increases approximately two-fold for each 1.0 SD decrease in T-score. Low bone density is not the only risk factor for fracture; also consider factors such as patient's age, frailty or poor health, risk of falling, risk of injury, previous osteoporotic fracture, family history of osteoporosis, cigarette smoking, low body weight, etc. Not everyone with low bone mineral density has osteoporosis; osteomalacia and other metabolic bone disorders should also be considered. Patients who have osteoporosis should be evaluated for specific diseases and conditions (secondary causes) that may cause or contribute to bone loss. The [place] [employer] (AACE) and National Osteoporosis Foundation (NOF) recommend pharmacologic intervention for all postmenopausal women whose T-score is in this range. The patient should follow a healthful lifestyle (good nutrition with adequate calcium and vitamin D, and appropriate weight-bearing exercise). Follow-Up: Consider a repeat BMD and Vertebral Fracture Assessment (VFA) exam in 2 years or sooner if medically necessary, to reassess this patient's status
== END 2022-05-11 10:04 | disposition home or self-care (01) ==
PROVIDERS: PCP Family Medicine; Visit Provider Advanced Practice Midwife
DX: Z78.0 Asymptomatic menopausal state (principal); M85.89 Other specified disorders of bone density and structure, multiple sites; M81.0 Age-related osteoporosis without current pathological fracture
CPT/HCPCS: 77080